=== PATIENT | male | born 2000 | race Caucasian/White ===

== ENCOUNTER 2022-10-05 07:35 | Emergency (ER) | payer BC ==
[~2022-10-05] VITALS: Ht 175.3 cm; Wt 95.5 kg
[2022-10-05 07:41] VITALS: TEMP 98.2
[2022-10-05] MEDS ORDERED: ROXICODONE 55 MG/TAB PO (08:47)
[2022-10-05 09:15] VITALS: BP 121/80; PULSE 92
== END 2022-10-05 09:15 | disposition home or self-care (01) ==
LOC: COL.ER 07:35
DX: S43.014A Anterior dislocation of right humerus, initial encounter (principal); Z28.311 Partially vaccinated for COVID-19; W18.40XA Slipping, tripping and stumbling without falling, unspecified, initial encounter; W22.8XXA Striking against or struck by other objects, initial encounter; X50.1XXA Overexertion from prolonged static or awkward postures, initial encounter; Y93.01 Activity, walking, marching and hiking; Y92.009 Unspecified place in unspecified non-institutional (private) residence as the place of occurrence of the external cause

== ENCOUNTER 2023-12-17 07:38 | Emergency (ER) | payer BC ==
[~2023-12-17] VITALS: Ht 175.3 cm; Wt 109.5 kg
[~2023-12-17 07:38] MED LIST: ROXICODONE 55 MG/TAB PO
[2023-12-17 07:46] VITALS: BP 131/91; TEMP 98
[2023-12-17 08:45] VITALS: PULSE 82
== END 2023-12-17 08:45 | disposition home or self-care (01) ==
LOC: COL.ER 07:38
DX: M24.411 Recurrent dislocation, right shoulder (principal)